=== PATIENT | female | born 1950 | race Caucasian/White ===

== ENCOUNTER 2024-02-08 07:53 | Day surgery (SDC) | payer MEDICARE, SELFPAY ==
[2024-02-02 13:03] VITALS: BMI 28.7
[2024-02-02 13:19] VITALS: BMI 28.4
--- NOTE | 2024-02-07 09:19 | P.CONAN_ITS ---
Documented by User: Laurie Krishnamurthy NP 02/07/24 09:20 HPI - Anesthesia Eval Consult details Narrative: 73yo F for Colonoscopy PMFSH Past Medical History Medical History Osteoarthritis Edema Diverticulosis Hyperlipidemia Surgical History Surgical History History of total right knee replacement (TKR) Hx of hammer toe correction Hx of appendectomy Hx of colonoscopy (~2013) Social History Social History Are you a primary transitional care manager to a significant other at home: No Do you presently have visiting nurse or other home services: No Patient Tobacco Use Status: Former Tobacco user Tobacco use type: Cigarette Smoked in Last 30 Days: No Use of substances other than those prescribed or required for medical reasons: No Have you been hit, kicked, punched, or otherwise hurt by someone within the past year? If so, by whom?: No Are you DNR?: No Advance Directives: No Advance Directives Information Provided: Yes Advance Directives on File: No Recently lost weight without trying: No Nutrition Risks: No Nutritional Risk Poor oral hygiene: No Meds Allergies Allergy/AdvReac Type Severity Reaction Status Date / Time metal Allergy Mild Rash from Uncoded 02/02/24 13:19 some metals Home Medications ?Medication ?Instructions ?Recorded ?Confirmed ?Last Taken ?Type atorvastatin 20 mg tablet 20 mg PO DAILY 02/02/24 02/02/24 Unknown History celecoxib 200 mg capsule 200 mg PO DAILY 02/02/24 02/02/24 Unknown History multivitamin 1 tab PO DAILY 02/02/24 02/02/24 Unknown History torsemide 20 mg tablet 20 mg PO DAILY 02/02/24 02/02/24 Unknown History Exam Height,Weight and Vital Signs: Height 5 ft 4.5 in Weight 76.204 kg Assessment and Plan Assessment Anesthesia Assessment: Chart Reviewed Documented by User: Thea Lopez MD 02/08/24 09:44 [facility] Past Medical History Medical History Osteoarthritis Edema Diverticulosis Hyperlipidemia Family History Family history of problems with anesthesia: No Surgical History Surgical History History of total right knee replacement (TKR) Hx of hammer toe correction Hx of appendectomy Hx of colonoscopy (~2013) History of Problems with Anesthesia: No Social History Social History Are you a primary transitional care manager to a significant other at home: No Do you presently have visiting nurse or other home services: No Patient Tobacco Use Status: Former Tobacco user Tobacco use type: Cigarette Smoked in Last 30 Days: No Use of substances other than those prescribed or required for medical reasons: No Have you been hit, kicked, punched, or otherwise hurt by someone within the past year? If so, by whom?: No Are you DNR?: No Advance Directives: No Advance Directives Information Provided: Yes Advance Directives on File: No Recently lost weight without trying: No Nutrition Risks: No Nutritional Risk Poor oral hygiene: No Meds Allergies Allergy/AdvReac Type Severity Reaction Status Date / Time metal Allergy Mild Rash from Uncoded 02/02/24 13:19 some metals Home Medications ?Medication ?Instructions ?Recorded ?Confirmed ?Last Taken ?Type atorvastatin 20 mg tablet 20 mg PO DAILY 02/02/24 02/02/24 Unknown History celecoxib 200 mg capsule 200 mg PO DAILY 02/02/24 02/02/24 Unknown History multivitamin 1 tab PO DAILY 02/02/24 02/02/24 Unknown History torsemide 20 mg tablet 20 mg PO DAILY 02/02/24 02/02/24 Unknown History Exam Height,Weight and Vital Signs: Height 5 ft 4.5 in Weight 76.204 kg Vital Signs Temp Pulse Resp BP Pulse Ox O2 Del Method 02/08/24 08:01 98.2 F 74 16 137/71 98 Room Air Airway Mallampati Class: II TM Dist: >3cm Neck ROM: Full Loose/Missing/Broken Teeth: Yes (1 tooth extracted. Denies broken or loose teeth) Heart: RRR Lungs: CTAB Assessment and Plan Assessment Anesthesia Assessment: Anesthesia Plan Discussed and Chart Reviewed Final Anesthetic Review Family History of Problems with Anesthesia: No History of Problems with Anesthesia: No NPO: Yes ASA Class: II Final Preanesthetic Review: No Changes in Pt Med Stat, Meds/Allgs Chart Reviewed, Consent Obtained/Reviewed and Anes Risks/Benef Reviewed Patient Risk: Low Procedure Risk: Low Assessment/Block/Sedation in SS: Assess/Block/Sedation-SS Anesthetic Plan Anesthetic Plan: TIVA Disposition: Standard PACU
[2024-02-08 08:01] VITALS: BP 137/71; PULSE 74; RESP 16; TEMP 36.8; O2SAT 98; BMI 28.8
[2024-02-08] MEDS: Lactated Ringers 1,000 ML 100 ML IVCONT (08:11)
--- NOTE | 2024-02-08 09:13 | MHC.SHP ---
Pre-Procedural Eval Section A - 24 Hr Update-Section A only Date of Service: 02/08/24 Section B - Complete if H&P > 30 days Chief Complaint: Encounter for screening for malignant neoplasm of Details of Present Illness: see H&P no changes Relevant Family History (Specify if Yes): No Relevant Social History: None Present Medications: see Short Stay Collaborative assessment Medical History: No relevant PMH History of Previous Operations: No relevant previous surgery Allergies: Allergies Allergy/AdvReac Type Severity Reaction Status Date / Time metal Allergy Mild Rash from Uncoded 02/02/24 13:19 some metals Review of Systems Sugical H&P ROS: Negative: Constitution, Cardiovascular, Respiratory, Neurological, Psychiatric, Hem-Onc, Allergic/Immunologic, Gastrointestinal, Genitourinary, Musculoskeletal, Integumentary, Endocrine and Eyes/Ears/Nose/Throat Exam Surgical H&P Exam: Normal: HEENT, Normal: Heart, Normal: Lungs, Normal: Extremities, Normal: Abdomen, Normal: Skin and Normal: Neurological Plan Diagnosis/Plan: Unchanged I have reviewed the history and physical and performed a pertinent physical examination on my patient. No changes have occurred unless specified. Time Spent With Patient Time: Total time managing care of this patient today ____ minutes.
[2024-02-08 09:46] VITALS: BP 112/63; PULSE 79; RESP 16; TEMP 36.1; O2SAT 97
--- NOTE | 2024-02-08 09:57 | OP_ITS ---
DATE OF SERVICE: 02/08/2024 SURGEON: Fritz Mina MD INDICATIONS: Colon cancer screening. PREOPERATIVE DIAGNOSIS: POSTOPERATIVE DIAGNOSIS: PROCEDURE PERFORMED: Colonoscopy to the terminal ileum. ESTIMATED BLOOD LOSS: COMPLICATIONS: ANESTHESIA: Monitored anesthesia care. ASSISTANTS: SPECIMENS: DESCRIPTION OF PROCEDURE: A history and physical performed. The risks and benefits of the procedure were explained to the patient. Informed consent was obtained. The patient was placed in the left lateral decubitus position. A digital rectal exam was performed and was found to be normal. The Olympus pediatric video colonoscope was introduced into the rectum and advanced to the cecum. The cecum was identified by transillumination, palpation, and identification of the ileocecal valve. Examination was performed. The scope was removed. She tolerated the procedure well and was taken to recovery in stable condition. FINDINGS: The terminal ileum was examined and appeared normal. The visualized colonic mucosa was within normal limits without evidence of masses or ulcers. No polyps were identified. There was moderate sigmoid diverticulosis with scattered diverticulitis throughout the remainder of the colon. Retroflexed examination showed moderate-sized internal hemorrhoids. The quality of the prep was good. IMPRESSION: Normal colonoscopy. RECOMMENDATIONS: 1. Follow up as needed. 2. Repeat colonoscopy is recommended in 10 years for average-risk individuals. This will be optional based on the patient's age. MD JANICE Astudillo/GAETANO / [id number]
[2024-02-08 09:59] VITALS: BP 114/66; PULSE 72; RESP 16; TEMP 36.5; O2SAT 97
== END 2024-02-08 10:48 | disposition home or self-care (01) ==
PROVIDERS: PCP Internal Medicine; Visit Provider Internal Medicine Gastroenterology
PROC: 0DJD8ZZ Inspection of Lower Intestinal Tract, Via Natural or Artificial Opening Endoscopic (ICD-10-PCS; CPT 45378; principal; 2024-02-08 09:20)
DX: Z12.11 Encounter for screening for malignant neoplasm of colon (principal); K57.30 Diverticulosis of large intestine without perforation or abscess without bleeding; K57.32 Diverticulitis of large intestine without perforation or abscess without bleeding; K64.8 Other hemorrhoids; E78.5 Hyperlipidemia, unspecified; R60.9 Edema, unspecified; M19.90 Unspecified osteoarthritis, unspecified site; Z79.1 Long term (current) use of non-steroidal anti-inflammatories (NSAID); Z79.899 Other long term (current) drug therapy; L23.0 Allergic contact dermatitis due to metals; Z98.890 Other specified postprocedural states; Z87.891 Personal history of nicotine dependence
CPT/HCPCS: G0121; J2003; J2704